=== PATIENT | male | born 1955 | race Caucasian/White ===

== ENCOUNTER 2021-08-10 08:21 | Inpatient (IN) ==
--- NOTE | 2021-08-10 08:42 | Emergency Department Note ---
Extremity Problem HPI General Chief complaint: Extremity Problem,Nontraumatic Stated complaint: lower leg swelling Time Seen by Provider: 08/10/21 08:27 Source: patient and RN notes reviewed Mode of arrival: ambulatory Limitations: no limitations History of Present Illness HPI Narrative: 65-year-old male with past medical history of arthritis, substance abuse and as below presents with severe right knee pain, swelling, redness for about 3 weeks after he fell forward onto her right knee. Patient also feels tired, has shortness of breath, poor appetite with significant loss of weight and loss of taste. Patient has not been immunized for COVID. Patient also has right red eye. Patient has no headache, dizziness, chest pain, abdominal pain, nausea/vomiting/constipation/diarrhea, fever or chills. In the ER he is afebrile, however his blood pressure is 100/68 which is lower than his usual blood pressure MD Complaint: extremity pain and extremity swelling Related Data Home Medications Medication Instructions Recorded Confirmed No Known Home Meds 08/10/21 08/10/21 Allergies Allergy/AdvReac Type Severity Reaction Status Date / Time ciprofloxacin AdvReac Mild Cramping Verified 08/10/21 17:18 of the Muscles Review of Systems ROS ROS Narrative: Narrative: All systems ED: reviewed and negative except as stated. Constitutional: Reports weakness and weight change Eyes: Reports as per HPI and vision change (Right red eye) ENT ED: Reports as per HPI and other (Patient has loss of taste) Cardiovascular: Reports as per HPI (Patient has shortness of breath) Respiratory: Reports shortness of breath Gastrointestinal: Reports as per HPI; Denies abdominal pain, vomiting, diarrhea or constipation Musculoskeletal: Reports as per HPI and joint pain (Right knee pain and selling) [facility] Narrative Patient History Narrative: Narrative: Medical/Surgical/Family History All Active Problems (Updated 08/14/21 @ 08:11 by Russell Elder MD) Sepsis (Acute) Hypokalemia (Acute) Stage 1 acute kidney injury (Acute) Elevated brain natriuretic peptide (BNP) level (Acute) Anemia, normocytic normochromic (Acute) Weight loss (Acute) Hyponatremia (Acute) Septic arthritis of knee, right (Acute) Arthritis (Chronic) Daytime sleepiness (Chronic) Substance use disorder (Chronic) Ankle fracture, left (Chronic) BPH (benign prostatic hyperplasia) (Chronic) Bladder diverticulum (Acute) Bladder polyp (Acute) Incomplete bladder emptying (Acute) Tobacco dependence due to cigarettes, in remission (Chronic) Rib pain on right side (Acute) Dental infection (Acute) Acute pain of right knee (Acute) Pain and swelling of right knee (Acute) Loss of taste (Acute) Anemia (Acute) Medical History Abdominal pain, suprapubic Abrasion of right index finger Abscess Anemia Ankle fracture, left 1993~ Arthritis Bladder diverticulum Bladder polyp BPH (benign prostatic hyperplasia) s/p TURP Daytime sleepiness Edema of left lower extremity Joint pain Medicare annual wellness visit, initial Medicare welcome visit Muscle pain Rib pain on right side Right inguinal hernia Symptomatic right inguinal hernia. Risk, benefits, alternatives to treatment were discussed with him at length. He verbalizes understanding and desires to continue with surgery. Substance use disorder History Tobacco dependence due to cigarettes, in remission Urinary retention Surgical History History of ankle surgery (~1993) Left Ankle Reconstruction History of dental surgery History of hand surgery Right Finger History of right inguinal hernia repair 04/16/2020-laparoscopic S/P vasectomy (~1985) Family History Sister Cancer Social History Smoking Status: Current some day smoker Alcohol Intake Frequency: does not drink Substance Use: former substance user Exam Narrative Narrative: Narrative: General Limitations: no limitations General appearance: Present alert and in no apparent distress Head Head: Present atraumatic and normocephalic Eye Eye: Present other (+ redness right conjunctiva) ENT ENT: Present mucous membranes dry Respiratory Respiratory: Present normal lung sounds bilaterally Cardiovascular Cardiovascular: Present regular rate, normal rhythm and normal heart sounds Adbominal Abdominal: Present soft and normal bowel sounds; Absent organomegaly Extremities Extremities: Present other (+ redness, tenderness, swelling of right knee with fluid waves) Course Course Course Narrative: During the hospital course of blood tests including CBC, chemistry, UA, urine drug screen, COVID test, chest x-ray, right knee x-ray were obtained. Patient was given normal saline 1000 mL IV. Upon follow-up patient says WBC count is 38.1 with left shift, his lactate is 2.5, he has low sodium of 126, BUN/creatinine is high at 26 /1.3, GFR is normal at 56. Patient is negative for COVID. His chest x-ray and x-ray of the right knee is pending. Patient was given Zosyn 3.375 g IV normal saline 2 L IV, Dilaudid 0.5 mg IV, and Zofran 4 mg IV. Plan is to admit patient for further treatment and management Vital Signs Vital signs: Vital Signs Temperature 98.0 F 08/10/21 08:21 Pulse Rate 98 H 08/10/21 08:21 Respiratory Rate 20 08/10/21 08:21 Blood Pressure 100/68 08/10/21 08:21 Pulse Oximetry (%) 98 08/10/21 08:21 Temperature 97.7 F 08/11/21 07:56 Pulse Rate 79 08/11/21 07:56 Respiratory Rate 24 H 08/11/21 07:56 Blood Pressure 149/85 08/11/21 07:56 Pulse Oximetry (%) 98 08/11/21 07:56 MDM MDM Narrative Medical decision making narrative: Narrative: Lab Data Result diagrams: 08/11/21 03:27 08/10/21 18:10 Labs: Lab Results 08/10/21 08/10/21 08/10/21 Range/Units 08:25 08:25 08:25 WBC 38.1 H* (4.5-11.0) K/mcL RBC 4.16 L (4.63-6.08) M/mcL Hgb 11.8 L (13.7-17.5) g/dL Hct 35.2 L (40.1-51.0) % MCV 84.6 (80.0-100.0) fL MCH 28.4 (26.0-34.0) pg MCHC 33.5 (31.0-36.0) g/dL RDW 14.5 (11.5-14.5) % Plt Count 342 (140-440) K/mcL MPV 10.8 H (7.4-10.4) fL Seg Neutrophils % 87 H (38-78) % Band Neutrophils % 4 (0-10) % Lymphocytes % 5 L (15-49) % Eosinophils % (Manual) 4 (0-7) % Platelet Estimate Normal (Normal) RBC Morphology Normal (Normal) ESR (0-20) mm/hr POC VBG pH (7.32-7.42) POC VBG pCO2 at Temp (41-51) POC VBG pO2 (25-40) POC VBG HCO3 (24-28) POC VBG Total CO2 (25-29) POC Venous O2 Sat (40-70) POC VBG Base Excess (-2-2) Sodium 126 L (133-145) mmol/L Potassium 3.4 (3.3-5.1) mmol/L Chloride 89 L (96-108) mmol/L Carbon Dioxide 23 (22-30) mmol/L Anion Gap 14.0 (8.0-16.0) BUN 26 H (8-23) mg/dL Creatinine 1.3 H (0.7-1.2) mg/dL GFR Calculation 56 Glucose 157 H (70-105) mg/dL POC Venous Lactate (0.5-2) Calcium 7.6 L (8.6-10.4) mg/dL Magnesium (1.6-2.5) mg/dL Total Bilirubin 2.4 H (0.1-1.0) mg/dL AST 20 (<40) U/L ALT 20 (<40) U/L Alkaline Phosphatase 530 H (39-117) U/L Troponin T (<0.03) ng/mL NT-Pro-B Natriuret Pep 2163.0 H (<125.0) pg/mL Total Protein 6.0 (5.9-8.4) gm/dL Albumin 2.1 L (3.2-5.2) gm/dL Globulin 3.9 H (2.2-3.7) gm/dL Albumin/Globulin Ratio 0.5 L (1.0-2.3) Procalcitonin (<0.10) ng/mL Random Cortisol ug/dL Hepatitis A IgM Ab (Non-Reactive) Hep Bs Antigen (Negative) Hep B Core IgM Ab (Non-Reactive) Hepatitis C Antibody (Non-Reactive) HIV 1&2 Ag/Ab, 4th Gen (Non-Reactive) 08/10/21 08/10/21 08/10/21 Range/Units 08:25 08:25 08:25 WBC (4.5-11.0) K/mcL RBC (4.63-6.08) M/mcL Hgb (13.7-17.5) g/dL Hct (40.1-51.0) % MCV (80.0-100.0) fL MCH (26.0-34.0) pg MCHC (31.0-36.0) g/dL RDW (11.5-14.5) % Plt Count (140-440) K/mcL MPV (7.4-10.4) fL Seg Neutrophils % (38-78) % Band Neutrophils % (0-10) % Lymphocytes % (15-49) % Eosinophils % (Manual) (0-7) % Platelet Estimate (Normal) RBC Morphology (Normal) ESR > 120 H (0-20) mm/hr POC VBG pH (7.32-7.42) POC VBG pCO2 at Temp (41-51) POC VBG pO2 (25-40) POC VBG HCO3 (24-28) POC VBG Total CO2 (25-29) POC Venous O2 Sat (40-70) POC VBG Base Excess (-2-2) Sodium (133-145) mmol/L Potassium (3.3-5.1) mmol/L Chloride (96-108) mmol/L Carbon Dioxide (22-30) mmol/L Anion Gap (8.0-16.0) BUN (8-23) mg/dL Creatinine (0.7-1.2) mg/dL GFR Calculation Glucose (70-105) mg/dL POC Venous Lactate (0.5-2) Calcium (8.6-10.4) mg/dL Magnesium (1.6-2.5) mg/dL Total Bilirubin (0.1-1.0) mg/dL AST (<40) U/L ALT (<40) U/L Alkaline Phosphatase (39-117) U/L Troponin T (<0.03) ng/mL NT-Pro-B Natriuret Pep (<125.0) pg/mL Total Protein (5.9-8.4) gm/dL Albumin (3.2-5.2) gm/dL Globulin (2.2-3.7) gm/dL Albumin/Globulin Ratio (1.0-2.3) Procalcitonin (<0.10) ng/mL Random Cortisol 17.8 ug/dL Hepatitis A IgM Ab Non-reactive (Non-Reactive) Hep Bs Antigen Negative (Negative) Hep B Core IgM Ab Non-reactive (Non-Reactive) Hepatitis C Antibody Non-reactive (Non-Reactive) HIV 1&2 Ag/Ab, 4th Gen Non-reactive (Non-Reactive) 08/10/21 08/10/21 08/10/21 Range/Units 08:25 09:07 10:58 WBC (4.5-11.0) K/mcL RBC (4.63-6.08) M/mcL Hgb (13.7-17.5) g/dL Hct (40.1-51.0) % MCV (80.0-100.0) fL MCH (26.0-34.0) pg MCHC (31.0-36.0) g/dL RDW (11.5-14.5) % Plt Count (140-440) K/mcL MPV (7.4-10.4) fL Seg Neutrophils % (38-78) % Band Neutrophils % (0-10) % Lymphocytes % (15-49) % Eosinophils % (Manual) (0-7) % Platelet Estimate (Normal) RBC Morphology (Normal) ESR (0-20) mm/hr POC VBG pH 7.43 H (7.32-7.42) POC VBG pCO2 at Temp 41.5 (41-51) POC VBG pO2 36 (25-40) POC VBG HCO3 27.4 (24-28) POC VBG Total CO2 29.0 (25-29) POC Venous O2 Sat 71.0 H (40-70) POC VBG Base Excess 3.0 H (-2-2) Sodium (133-145) mmol/L Potassium (3.3-5.1) mmol/L Chloride (96-108) mmol/L Carbon Dioxide (22-30) mmol/L Anion Gap (8.0-16.0) BUN (8-23) mg/dL Creatinine (0.7-1.2) mg/dL GFR Calculation Glucose (70-105) mg/dL POC Venous Lactate 2.5 H (0.5-2) Calcium (8.6-10.4) mg/dL Magnesium 2.2 (1.6-2.5) mg/dL Total Bilirubin (0.1-1.0) mg/dL AST (<40) U/L ALT (<40) U/L Alkaline Phosphatase (39-117) U/L Troponin T (<0.03) ng/mL NT-Pro-B Natriuret Pep (<125.0) pg/mL Total Protein (5.9-8.4) gm/dL Albumin (3.2-5.2) gm/dL Globulin (2.2-3.7) gm/dL Albumin/Globulin Ratio (1.0-2.3) Procalcitonin 0.56 H (<0.10) ng/mL Random Cortisol ug/dL Hepatitis A IgM Ab (Non-Reactive) Hep Bs Antigen (Negative) Hep B Core IgM Ab (Non-Reactive) Hepatitis C Antibody (Non-Reactive) HIV 1&2 Ag/Ab, 4th Gen (Non-Reactive) 08/10/21 Range/Units 11:12 WBC (4.5-11.0) K/mcL RBC (4.63-6.08) M/mcL Hgb (13.7-17.5) g/dL Hct (40.1-51.0) % MCV (80.0-100.0) fL MCH (26.0-34.0) pg MCHC (31.0-36.0) g/dL RDW (11.5-14.5) % Plt Count (140-440) K/mcL MPV (7.4-10.4) fL Seg Neutrophils % (38-78) % Band Neutrophils % (0-10) % Lymphocytes % (15-49) % Eosinophils % (Manual) (0-7) % Platelet Estimate (Normal) RBC Morphology (Normal) ESR (0-20) mm/hr POC VBG pH (7.32-7.42) POC VBG pCO2 at Temp (41-51) POC VBG pO2 (25-40) POC VBG HCO3 (24-28) POC VBG Total CO2 (25-29) POC Venous O2 Sat (40-70) POC VBG Base Excess (-2-2) Sodium (133-145) mmol/L Potassium (3.3-5.1) mmol/L Chloride (96-108) mmol/L Carbon Dioxide (22-30) mmol/L Anion Gap (8.0-16.0) BUN (8-23) mg/dL Creatinine (0.7-1.2) mg/dL GFR Calculation Glucose (70-105) mg/dL POC Venous Lactate (0.5-2) Calcium (8.6-10.4) mg/dL Magnesium (1.6-2.5) mg/dL Total Bilirubin (0.1-1.0) mg/dL AST (<40) U/L ALT (<40) U/L Alkaline Phosphatase (39-117) U/L Troponin T < 0.01 (<0.03) ng/mL NT-Pro-B Natriuret Pep (<125.0) pg/mL Total Protein (5.9-8.4) gm/dL Albumin (3.2-5.2) gm/dL Globulin (2.2-3.7) gm/dL Albumin/Globulin Ratio (1.0-2.3) Procalcitonin (<0.10) ng/mL Random Cortisol ug/dL Hepatitis A IgM Ab (Non-Reactive) Hep Bs Antigen (Negative) Hep B Core IgM Ab (Non-Reactive) Hepatitis C Antibody (Non-Reactive) HIV 1&2 Ag/Ab, 4th Gen (Non-Reactive) ED POC Tests ED POC Tests: EVANGELINA - SARS Antigen Negative Discharge Plan Patient/Caregiver Discharge Instructions Pt seen by [facility]/PA only: No Clinical Impression: Pain and swelling of right knee, Loss of taste, Sepsis Activity: increase activity as tolerated Patient Disposition: Xfer As Inpt ([facility]) Discharge Date/Time: 08/10/21 11:49 Discharge Comment: Discharged to ICU @ 1141
[2021-08-10] MEDS ORDERED: 0.9 % SODIUM CHLORIDE 1,000 ML IV ONE ×2 (08:57→09:52)
[2021-08-10 09:21] LABS: Hematocrit 35.2 % (40.1-51.0); Hemoglobin 11.8 g/dL (13.7-17.5); Mean Cell Volume 84.6 fL (80.0-100.0); Mean Corpuscular HGB Conc 33.5 g/dL (31.0-36.0); Mean Platelet Volume 10.8 fL (7.4-10.4); Platelet Count 342 K/mcL (140-440); RBC 4.16 M/mcL (4.63-6.08); Red Cell Distribution Width 14.5 % (11.5-14.5); WBC 38.1 K/mcL (4.5-11.0)
[2021-08-10] MEDS ORDERED: HYDROmorphone 0.5 MG/0.5 ML SYRINGE IV ONE (09:27)
[2021-08-10] MEDS ORDERED: PIPERACILLIN SODIUM/TAZOBACTAM 3.375 GM in DEXTROSE 5% IN WATER 50 ML IV ONE (09:29)
[2021-08-10 09:41] LABS: ALT/SGPT 20 U/L (<40); AST/SGOT 20 U/L (<40); Albumin 2.1 gm/dL (3.2-5.2); Albumin/Globulin Ratio 0.5 (1.0-2.3); Alkaline Phosphatase 530 U/L (39-117); Band Neutrophils % 4 % (0-10); Bilirubin,Total 2.4 mg/dL (0.1-1.0); Blood Urea Nitrogen 26 mg/dL (8-23); Calcium 7.6 mg/dL (8.6-10.4); Carbon Dioxide 23 mmol/L (22-30); Chloride 89 mmol/L (96-108); Eosinophils % (Manual) 4 % (0-7); Globulin 3.9 gm/dL (2.2-3.7); Glomerular Filtration Rate 56; Glucose 157 mg/dL (70-105); Lymphocytes % 5 % (15-49); Platelet Estimate NORMAL (Normal); RBC Morphology NORMAL (Normal); Segmented Neutrophils % 87 % (38-78)
[2021-08-10] MEDS ORDERED: ONDANSETRON 4 MG/2 ML VIAL IV ONE (10:29)
[2021-08-10] MEDS ORDERED: 0.9 % SODIUM CHLORIDE 1,000 ML IV SCH (11:00)
--- NOTE | 2021-08-10 11:25 | Internal Med History&Physical ---
HPI History of Present Illness Patient information: Note initiated : 08/10/21 at 11:24 am Service Date, if different from initiated Date: [] Patient: Philip Donato 65 y/o M admitted on for lower leg swelling. Chief Complaint: [right knee swelling and pain] Chief complaint: right knee swelling and pain History of present illness: Mr. Donato is a 65 year old M history of arthritis, substance abuse disorder, presenting with 3-week history of swelling and pain of his right knee. He denies prior similar episode. He stated that he was carrying heavy objects and fell and landed on his knees and his right knee has been progressively getting red, swelling, and pain ever since the accident. He states that when he is at rest there is no pain of his right knee but whenever he is trying to stand or put weight on his right knee he would experience 10 out of 10, sharp, constant pain. He has no also noticed redness and swelling of the right knee. Was more, he is also experiencing increasing bilateral lower extremity swelling. He also has experienced a 40 pound weight loss over the past 3 weeks. He denies shortness of breath. He denies exertional dyspnea. He has orthopnea 2-3 pillows but it has been no change. Vital signs at ED presentation significant for tachypnea with rate of breathing in the mid 20s. Labs significant for leukocytosis with WBC 38.1. BNP 2163. Serum sodium 126. Lactic acid pending. Chest x-ray and right knee x-ray pending's. Admission request made for presumed right knee septic arthritis. Constitutional Constitutional: Present weight loss; Absent chills, excessive sweating, fatigue or fever(s) EENT Eyes: Absent blurry vision, change in vision, loss of vision or other visual disturbances Ears: Absent decreased hearing or tinnitus Nose, mouth and throat: Absent abnormal hearing, dry mouth, headache(s), nasal congestion or sore throat Cardiovascular Cardiovascular: Absent chest pain, chest pain at rest, edema, irregular heart rhythm or palpatations Respiratory Respiratory: Absent cough, dyspnea or wheezing Gastrointestinal Gastrointestinal: Absent abdominal pain, constipation, diarrhea, nausea or vomiting Musculoskeletal Musculoskeletal: Present as per HPI, arthralgias, joint swelling and limited range of motion; Absent back pain, deformity, muscle cramps, muscle weakness or numbness Integumentary Integumentary: Absent lesions, rash or wounds Neurological Neurological: Absent focal weakness, headache(s) or numbness Psychiatric Psychiatric: Absent anxiety, depression or hallucinations PFSH PFSH All Active Problems (Updated 08/10/21 @ 11:38 by Shaun Navarrete MD) Stage 1 acute kidney injury (Acute) Elevated brain natriuretic peptide (BNP) level (Acute) Anemia, normocytic normochromic (Acute) Weight loss (Acute) Hyponatremia (Acute) Septic arthritis of knee, right (Acute) Arthritis (Chronic) Daytime sleepiness (Chronic) Substance use disorder (Chronic) Ankle fracture, left (Chronic) BPH (benign prostatic hyperplasia) (Chronic) Bladder diverticulum (Acute) Bladder polyp (Acute) Incomplete bladder emptying (Acute) Tobacco dependence due to cigarettes, in remission (Chronic) Rib pain on right side (Acute) Dental infection (Acute) Acute pain of right knee (Acute) Pain and swelling of right knee (Acute) Loss of taste (Acute) Anemia (Acute) Medical History Abdominal pain, suprapubic Abrasion of right index finger Abscess Anemia Ankle fracture, left 1993~ Arthritis Bladder diverticulum Bladder polyp BPH (benign prostatic hyperplasia) s/p TURP Daytime sleepiness Edema of left lower extremity Joint pain Medicare annual wellness visit, initial Medicare welcome visit Muscle pain Rib pain on right side Right inguinal hernia Symptomatic right inguinal hernia. Risk, benefits, alternatives to treatment were discussed with him at length. He verbalizes understanding and desires to continue with surgery. Substance use disorder History Tobacco dependence due to cigarettes, in remission Urinary retention Surgical History History of ankle surgery (~1993) Left Ankle Reconstruction History of dental surgery History of hand surgery Right Finger History of right inguinal hernia repair 04/16/2020-laparoscopic S/P vasectomy (~1985) Family History Sister Cancer Social History (Updated 12/27/20 @ 14:47 by Ekaterina Gonzalez RN) marital status: smoking status: Former smoker alcohol intake frequency: does not drink substance use type: former substance user MEDS/ALLERGIES Home Medications and Allergies Home Medications Medication Instructions Recorded Confirmed Type No Known Home Meds 08/10/21 08/10/21 History Allergies Allergy/AdvReac Type Severity Reaction Status Date / Time ciprofloxacin AdvReac Mild Cramping Verified 08/10/21 08:24 of the Muscles EXAM Constitutional Vitals: Temp Pulse Resp BP Pulse Ox 36.7 C 69 25 H 128/76 97 08/10/21 08:21 08/10/21 10:46 08/10/21 11:01 08/10/21 11:01 08/10/21 10:46 General appearance: cooperative, disheveled and no acute distress Head Head exam: Present atraumatic and normocephalic Eye Eye exam: Present EOMI and PERRL ENT ENT exam: Present mucous membranes moist, normal exam and normal external ear exam Neck Neck exam: Present normal inspection; Absent lymphadenopathy, tenderness or thyromegaly Respiratory Respiratory exam: Absent accessory muscle use, respiratory distress or wheezes Cardiovascular Cardiovascular exam: Present normal rate and rhythm; Absent JVD GI/Abdominal GI/Abdominal exam: Present normal bowel sounds and soft; Absent organomegaly or tenderness Rectal Rectal exam: Present deferred Extremities Exam Extremities exam: Present joint swelling, normal capillary refill, pedal edema and tenderness; Absent full ROM or normal inspection Additional comments: active and passive ROMs of the right knee limited by pain. Erythema, swelling, warmth, and tenderness to palpation of right knee. Neurological Exam Neurological exam: Present alert, CN II-XII intact and oriented X3; Absent motor sensory deficit Psychiatric Psychiatric exam: Present normal affect and normal mood; Absent anxious or depressed Skin Skin exam: Present dry and intact DATA Data Completed and Pending Labs: Labs from last 24 hours 08/10/21 08/10/21 08/10/21 11:12 10:58 09:07 WBC RBC Hgb Hct MCV MCH MCHC RDW Plt Count MPV Seg Neutrophils % Band Neutrophils % Lymphocytes % Eosinophils % (Manual) Platelet Estimate RBC Morphology POC VBG pH 7.43 H POC VBG pCO2 at Temp 41.5 POC VBG pO2 36 POC VBG HCO3 27.4 POC VBG Total CO2 29.0 POC Venous O2 Sat 71.0 H POC VBG Base Excess 3.0 H Sodium Potassium Chloride Carbon Dioxide Anion Gap BUN Creatinine GFR Calculation Glucose POC Venous Lactate 2.5 H Calcium Magnesium 2.2 Total Bilirubin AST ALT Alkaline Phosphatase Troponin T Pending NT-Pro-B Natriuret Pep Total Protein Albumin Globulin Albumin/Globulin Ratio 08/10/21 08/10/2108/10/22 08:25 08:25 08:25 WBC 38.1 H* RBC 4.16 L Hgb 11.8 L Hct 35.2 L MCV 84.6 MCH 28.4 MCHC 33.5 RDW 14.5 Plt Count 342 MPV 10.8 H Seg Neutrophils % 87 H Band Neutrophils % 4 Lymphocytes % 5 L Eosinophils % (Manual) 4 Platelet Estimate Normal RBC Morphology Normal POC VBG pH POC VBG pCO2 at Temp POC VBG pO2 POC VBG HCO3 POC VBG Total CO2 POC Venous O2 Sat POC VBG Base Excess Sodium 126 L Potassium 3.4 Chloride 89 L Carbon Dioxide 23 Anion Gap 14.0 BUN 26 H Creatinine 1.3 H GFR Calculation 56 Glucose 157 H POC Venous Lactate Calcium 7.6 L Magnesium Total Bilirubin 2.4 H AST 20 ALT 20 Alkaline Phosphatase 530 H Troponin T NT-Pro-B Natriuret Pep 2163.0 H Total Protein 6.0 Albumin 2.1 L Globulin 3.9 H Albumin/Globulin Ratio 0.5 L A/P Assessment and plan (1) Pain and swelling of right knee: Status: Acute (2) Septic arthritis of knee, right: Status: Acute (3) Hyponatremia: Status: Acute (4) Weight loss: Status: Acute (5) Anemia, normocytic normochromic: Status: Acute (6) Elevated brain natriuretic peptide (BNP) level: Status: Acute (7) Stage 1 acute kidney injury: Status: Acute Narrative A/P Narrative: Assessment and Plans: 1. Right knee swelling and pain: DDx: Septic arthritis, gout, rheumatoid arthritis Inpatient PCU Pending knee tapped with synovial fluid collections for for an analysis including gram stain and culture, cell count and differentials, most of scopic crystal analysis, glucose, proteins, albumin Status post fluid boluses given in the ED, to be followed by NS at 75 cc/h Serial lactic acid Procalcitonin Blood culture CBC with auto differential in the morning to trend WBC MRSA screening Vancomycin Zosyn Tylenol as needed fever or mild pain Oxycodone as needed moderate pain Morphine IV as needed severe pain Physical therapy Urine drug screen 2. Recent weight loss: Chest x-ray two-view to look for signs of TB Quantiferon Gold HIV screening Hepatitis panel Dietitian consult 3. hyponatremia with unknown chronicity: TSH Cortisol a.m. and random Status post fluid boluses given in the ED, to be followed by NS at 75 cc/h BMP q8hr, goals of corrections 8-10 points in the first 24 hours to avoid overcorrection's with associated [facility]PITAL[facility] AIDE consequences such as central pontine myelinolysis 4. Anemia, normocytic normochromic: CBC in the morning to trend H&H 5. Elevated BNP with associated bilateral leg swellinD echocardiogram to look for sign of congestive heart failure Leg elevations at rest when sleeping 6. Stage 1 acute kidney injury: Avoid nephrotoxic agent Status post fluid boluses given in the ED, to be followed by NS at 75 cc/h Serial BMP to trend kidney functions GI ppx: not currently indicated DVT ppx: Heparin Code status: Full Prognosis: guarded Disposition: inpatient PCU; PT Time Spent With Patient Time: Total time spent is greater than 50% in coordination of care (as documented) at patient's floor/unit and/or counseling patient: Total time spent with greater than 50% in coordination of care (as documented) at patient's floor/unit and/or counseling patient:: 50 - 70 minutes
[2021-08-10] MEDS ORDERED: SENNOSIDES 1 TABLET PO PRN (11:53)
[2021-08-10] MEDS ORDERED: LACTULOSE 20 GM/30 ML ORAL.SOL PO PRN (11:53)
[2021-08-10] MEDS ORDERED: VANCOMYCIN PER PHARMACY IV SCH (11:53)
[2021-08-10] MEDS ORDERED: morphine 4 MG/ML VIAL IV PRN (11:53)
[2021-08-10] MEDS ORDERED: IPRATROPIUM/ALBUTEROL 3 ML AMPUL.NEB NEB PRN (11:53)
[2021-08-10] MEDS ORDERED: VANCOMYCIN 1,500 MG in 0.9 % SODIUM CHLORIDE 500 ML IV ONE (12:00)
[2021-08-10] MEDS ORDERED: METOPROLOL TARTRATE 5 MG/5 ML VIAL IV PRN (12:21)
[2021-08-10] MEDS: 0.9 % SODIUM CHLORIDE 1,000 ML IV SCH (12:27)
[2021-08-10 12:34] LABS: HIV1/2 AG/AB 4TH Generation Non-Reactive (Non-Reactive)
[2021-08-10 12:41] LABS: Hepatitis B Surface Antigen Negative (Negative); Hepatitis C Virus Antibody Non-Reactive (Non-Reactive)
[2021-08-10 12:48] LABS: Estimated Average Glucose(eAG) 114 mg/dL; Hemoglobin A1C 5.6 % Hgb (4.0-6.0)
[2021-08-10 13:03] LABS: Thyroid Stimulating Hormone 2.78 uIU/mL (0.27-5.01)
[2021-08-10 13:07] LABS: Amphetamine Screen,Urine None detected; Barbiturate Screen,Urine None detected; Benzodiazepines Screen,Urine None detected; Cannabinoid Screen,Urine Suspect Positive; Cocaine Screen,Urine None detected; Opiate Screen,Urine None detected; Oxycodone, Urine Screen None detected; Phencyclidine Screen,Urine None detected
[2021-08-10] MEDS: oxyCODONE HCL 5 MG TABLET PO PRN ×2 (14:10→20:49)
[2021-08-10] MEDS: PIPERACILLIN SODIUM/TAZOBACTAM 3.375 GM in DEXTROSE 5% IN WATER 50 ML IV SCH ×3 (14:11→23:45)
--- NOTE | 2021-08-10 14:30 | XRay Report ---
HISTORY: Short of breath, lower leg swelling FINDINGS: Prominent increased interstitial lung markings are present bilaterally with the greatest involvement above the left diaphragm. No prior study is available for comparison. Lung volumes are normal. There is no lobar consolidation, mass, adenopathy or pleural effusion. Heart size is upper limits of normal in size. The pulmonary vessels are partially obscured by the generalized lung disease. IMPRESSION: Generalized interstitial lung disease. This is nonspecific and could be due to inflammation, fibrosis, pulmonary vascular congestion or a combination of the above. Interpreted and Authenticated by: Rodney Gómez 08/10/21
--- NOTE | 2021-08-10 14:31 | XRay Report ---
HISTORY: Fell with right knee pain FINDINGS: There is a large amount soft tissue swelling anterior to the patella. No fracture or dislocation are present. There is no gas or foreign body in the soft tissues. No joint effusion is detected. Comparison with the prior exam from 07/30/21 shows little change. IMPRESSION: Soft tissue injury and no fracture Interpreted and Authenticated by: Rodney Gómez 08/10/21
[2021-08-10 15:58] LABS: Appearance,Urine CLEAR (Clear); Bilirubin,Urine Negative (Negative); Color,Urine Yellow; Culture Indicated,Urine No; Glucose,Urine (UA) Negative (Negative); Ketones,Urine Negative (Negative); Leukocyte Esterase,Urine Negative /uL (Negative); Nitrate,Urine Negative (Negative); Protein,Urine Negative (Negative); Specific Gravity,Urine 1.011 (1.000-1.035); Urine Blood Negative (Negative)
[2021-08-10] MEDS: 0.9 % SODIUM CHLORIDE 10 ML SYRINGE IV SCH ×2 (16:06→20:44)
[2021-08-10] MEDS: ACETAMINOPHEN 325 MG TABLET PO PRN ×2 (17:36→23:52)
[2021-08-10] MEDS: IBUPROFEN 800 MG TABLET PO PRN (19:20)
[2021-08-10 19:33] LABS: Blood Urea Nitrogen 30 mg/dL (8-23); Calcium 7.4 mg/dL (8.6-10.4); Carbon Dioxide 26 mmol/L (22-30); Chloride 97 mmol/L (96-108); Glomerular Filtration Rate 69; Glucose 135 mg/dL (70-105)
[2021-08-10] MEDS ORDERED: POTASSIUM CHLORIDE 40 MEQ in DEXTROSE 5% IN WATER 500 ML IV ONE (19:38)
[2021-08-10] MEDS ORDERED: POTASSIUM CHLORIDE 20 MEQ/10 ML VIAL IV ONE (20:12)
[2021-08-10] MEDS ORDERED: HEPARIN 5,000 UNIT/ML VIAL SQ SCH (21:00)
[2021-08-10] MEDS ORDERED: DOCUSATE SODIUM 100 MG CAPSULE PO SCH (21:00)
[2021-08-10] MEDS ORDERED: LORazepam 1 MG TABLET PO PRN (22:21)
[2021-08-10] MEDS ORDERED: VANCOMYCIN 1,000 MG in 0.9 % SODIUM CHLORIDE 250 ML IV SCH (23:00)
[2021-08-10] MEDS ORDERED: LORazepam 1 MG TABLET ONE (23:53)
[2021-08-11] MEDS: ONDANSETRON 4 MG/2 ML VIAL IV PRN ×2 (01:29→05:16)
[2021-08-11] MEDS: 0.9 % SODIUM CHLORIDE 1,000 ML IV SCH (01:31)
[2021-08-11] MEDS: oxyCODONE HCL 5 MG TABLET PO PRN (03:10)
[2021-08-11 04:34] LABS: Basophils # (Auto) 0.09 K/mcL (0.00-0.30); Basophils % (Auto) 0.3 % (0.0-2.0); Eosinophils # (Auto) 0.95 K/mcL (0.00-0.70); Lymphocytes # (Auto) 1.48 K/mcL (1.50-4.80); Lymphocytes % (Auto) 4.7 % (15.5-49.0); Mean Cell Volume 84.4 fL (80.0-100.0); Mean Corpuscular HGB Conc 34.4 g/dL (31.0-36.0); Mean Platelet Volume 10.5 fL (7.4-10.4); Monocytes # (Auto) 0.98 K/mcL (0.10-0.90); Monocytes % (Auto) 3.1 % (1.0-12.0); Neutrophils % (Auto) 83.8 % (38.0-78.0); Phosphorous 2.6 mg/dL (2.5-4.5); Platelet Count 327 K/mcL (140-440); RBC 3.79 M/mcL (4.63-6.08); Red Cell Distribution Width 14.5 % (11.5-14.5); WBC 31.3 K/mcL (4.5-11.0)
[2021-08-11] MEDS: PIPERACILLIN SODIUM/TAZOBACTAM 3.375 GM in DEXTROSE 5% IN WATER 50 ML IV SCH (05:16)
[2021-08-11] MEDS: 0.9 % SODIUM CHLORIDE 10 ML SYRINGE IV SCH (05:22)
[2021-08-11] MEDS: IBUPROFEN 800 MG TABLET PO PRN (06:45)
--- NOTE | 2021-08-11 09:16 | Discharge Summary ---
Discharge Provider Provider IMPORTANT FOLLOW-UP INFORMATION FOR PCP: Patient information: Note initiated : 08/11/21 at 9:14 am Service Date, if different from initiated Date: [] Patient: Philip Donato 65 y/o M admitted on 08/10/21 for lower leg swelling. Chief Complaint: [] Date of admission: 08/10/21 11:49 Discharge date: 08/11/21 Primary care physician: Amari Boo MD Attending physician on admission: Shaun Navarrete Consults: 08/10/21 Consult to Physician [CONS] Stat Comment: Consulting Provider: Shaun Navarrete Reason For Exam: Physician to Consult Attending physician on discharge: Shaun Navarrete COURSE Hospital Course Hospital course: History of present illness: Mr. Donato is a 65 year old M history of arthritis, substance abuse disorder, presenting with 3-week history of swelling and pain of his right knee. He denies prior similar episode. He stated that he was carrying heavy objects and fell and landed on his knees and his right knee has been progressively getting red, swelling, and pain ever since the accident. He states that when he is at rest there is no pain of his right knee but whenever he is trying to stand or put weight on his right knee he would experience 10 out of 10, sharp, constant pain. He has no also noticed redness and swelling of the right knee. Was more, he is also experiencing increasing bilateral lower extremity swelling. He also has experienced a 40 pound weight loss over the past 3 weeks. He denies shortness of breath. He denies exertional dyspnea. He has orthopnea 2-3 pillows but it has been no change. Vital signs at ED presentation significant for tachypnea with rate of breathing in the mid 20s. Labs significant for leukocytosis with WBC 38.1. BNP 2163. Serum sodium 126. Lactic acid pending. Chest x-ray and right knee x-ray pending's. Admission request made for presumed right knee septic arthritis. 08/11: Patient left AMA Discharge diagnosis: right knee septic joint Time Spent with Patient Time attestation: Total time spent providing and/or coordinating discharge services: Time spent: Less than 30 minutes EXAM Constitutional Vitals: Temp Pulse Resp BP Pulse Ox 36.5 C 79 24 H 149/85 98 08/11/21 07:56 08/11/21 07:56 08/11/21 07:56 08/11/21 07:56 08/11/21 07:56 General appearance: disheveled and no acute distress; no cooperative Head Head exam: Present atraumatic and normocephalic Eye Eye exam: Present EOMI and PERRL ENT ENT exam: Present mucous membranes moist, normal exam and normal external ear ex am Neck Neck exam: Present normal inspection; Absent lymphadenopathy, tenderness or thyromegaly Respiratory Respiratory exam: Absent accessory muscle use, respiratory distress or wheezes Cardiovascular Cardiovascular exam: Present normal rate and rhythm; Absent JVD GI/Abdominal GI/Abdominal exam: Present normal bowel sounds and soft; Absent organomegaly or tenderness Rectal Rectal exam: Present deferred Extremities Exam Extremities exam: Present joint swelling, normal capillary refill and tenderness; Absent full ROM or normal inspection Neurological Exam Neurological exam: Present alert, CN II-XII intact and oriented X3; Absent motor sensory deficit Psychiatric Psychiatric exam: Present normal affect and normal mood; Absent anxious or depressed Skin Skin exam: Present dry and intact Discharge Data Data Completed and Pending Labs on day of discharge: Labs from last 24 hours 08/11/21 08/11/21 08/11/21 03:27 03:27 03:27 WBC 31.3 H* RBC 3.79 L Hgb 11.0 L Hct 32.0 L MCV 84.4 MCH 29.0 MCHC 34.4 RDW 14.5 Plt Count 327 MPV 10.5 H Immature Gran % (Auto) 5.1 H Neut % (Auto) 83.8 H Lymph % (Auto) 4.7 L Clark % (Auto) 3.1 Eos % (Auto) 3.0 Baso % (Auto) 0.3 Lymph # (Auto) 1.48 L Clark # (Auto) 0.98 H Eos # (Auto) 0.95 H Baso # (Auto) 0.09 Seg Neutrophils % Band Neutrophils % Lymphocytes % Eosinophils % (Manual) Immature Gran # 1.61 H Absolute Neutrophils 27.82 H Differential Comment Platelet Estimate RBC Morphology ESR VBG Lactic Acid Sodium Potassium Chloride Carbon Dioxide Anion Gap BUN Creatinine GFR Calculation Glucose Hemoglobin A1c Estim Average Glucose Calcium Phosphorus 2.6 Magnesium 2.2 Total Bilirubin AST ALT Alkaline Phosphatase Troponin T C-Reactive Protein NT-Pro-B Natriuret Pep Total Protein Albumin Globulin Albumin/Globulin Ratio Procalcitonin TSH Random Cortisol Cortisol AM Sample 19.1 Urine Color Urine Appearance Urine pH Ur Specific Dell Urine Protein Urine Glucose (UA) Urine Ketones Urine Occult Blood Urine Nitrate Urine Bilirubin Urine Urobilinogen Ur Leukocyte Esterase Ur Culture Indicated? Urine Opiates Screen Ur Opiates Confirm Ur Oxycodone Screen Urine Methadone Screen Ur Methadone Confirm Ur Barbiturates Screen Ur Barbiturate Confirm Ur Phencyclidine Scrn Urine PCP Confirm Ur Amphetamines Screen U Amphetamines Confirm U Benzodiazepines Scrn Ur Benzodiazepine, Qnt Urine Cocaine Screen Urine Cocaine Confirm U Cannabinoids Confirm U Marijuana (THC) Screen Hepatitis A IgM Ab Hep Bs Antigen Hep B Core IgM Ab Hepatitis C Antibody HIV 1&2 Ag/Ab, 4th Gen TB (QFT) Gold In Tube TB Test Mitogen - Nil TB Test Ag - Nil 1 TB Test Ag - Nil 2 TB Test CD4 Ag - Nil 08/10/21 08/10/21 08/10/21 18:10 12:26 12:25 WBC RBC Hgb Hct MCV MCH MCHC RDW Plt Count MPV Immature Gran % (Auto) Neut % (Auto) Lymph % (Auto) Clark % (Auto) Eos % (Auto) Baso % (Auto) Lymph # (Auto) Clark # (Auto) Eos # (Auto) Baso # (Auto) Seg Neutrophils % Band Neutrophils % Lymphocytes % Eosinophils % (Manual) Immature Gran # Absolute Neutrophils Differential Comment Platelet Estimate RBC Morphology ESR VBG Lactic Acid 1.5 Sodium 133 TNP Potassium 2.9 L* TNP Chloride 97 TNP Carbon Dioxide 26 TNP Anion Gap 10.0 TNP BUN 30 H TNP Creatinine 1.1 TNP GFR Calculation 69 TNP Glucose 135 H TNP Hemoglobin A1c 5.6 Estim Average Glucose 114 Calcium 7.4 L TNP Phosphorus Magnesium Total Bilirubin TNP AST TNP ALT TNP Alkaline Phosphatase TNP Troponin T C-Reactive Protein 8.50 H NT-Pro-B Natriuret Pep Total Protein TNP Albumin TNP Globulin TNP Albumin/Globulin Ratio TNP Procalcitonin TSH 2.78 Random Cortisol Cortisol AM Sample Urine Color Urine Appearance Urine pH Ur Specific Dell Urine Protein Urine Glucose (UA) Urine Ketones Urine Occult Blood Urine Nitrate Urine Bilirubin Urine Urobilinogen Ur Leukocyte Esterase Ur Culture Indicated? Urine Opiates Screen Ur Opiates Confirm Ur Oxycodone Screen Urine Methadone Screen Ur Methadone Confirm Ur Barbiturates Screen Ur Barbiturate Confirm Ur Phencyclidine Scrn Urine PCP Confirm Ur Amphetamines Screen U Amphetamines Confirm U Benzodiazepines Scrn Ur Benzodiazepine, Qnt Urine Cocaine Screen Urine Cocaine Confirm U Cannabinoids Confirm U Marijuana (THC) Screen Hepatitis A IgM Ab Hep Bs Antigen Hep B Core IgM Ab Hepatitis C Antibody HIV 1&2 Ag/Ab, 4th Gen TB (QFT) Gold In Tube Pending TB Test Mitogen - Nil Pending TB Test Ag - Nil 1 Pending TB Test Ag - Nil 2 Pending TB Test CD4 Ag - Nil Pending 08/10/21 08/10/21 08/10/21 12:17 12:17 11:12 WBC RBC Hgb Hct MCV MCH MCHC RDW Plt Count MPV Immature Gran % (Auto) Neut % (Auto) Lymph % (Auto) Clark % (Auto) Eos % (Auto) Baso % (Auto) Lymph # (Auto) Clark # (Auto) Eos # (Auto) Baso # (Auto) Seg Neutrophils % Band Neutrophils % Lymphocytes % Eosinophils % (Manual) Immature Gran # Absolute Neutrophils Differential Comment Platelet Estimate RBC Morphology ESR VBG Lactic Acid Sodium Potassium Chloride Carbon Dioxide Anion Gap BUN Creatinine GFR Calculation Glucose Hemoglobin A1c Estim Average Glucose Calcium Phosphorus Magnesium Total Bilirubin AST ALT Alkaline Phosphatase Troponin T < 0.01 C-Reactive Protein NT-Pro-B Natriuret Pep Total Protein Albumin Globulin Albumin/Globulin Ratio Procalcitonin TSH Random Cortisol Cortisol AM Sample Urine Color Yellow Urine Appearance Clear Urine pH 5.0 Ur Specific Dell 1.011 Urine Protein Negative Urine Glucose (UA) Negative Urine Ketones Negative Urine Occult Blood Negative Urine Nitrate Negative Urine Bilirubin Negative Urine Urobilinogen 4.0 A Ur Leukocyte Esterase Negative Ur Culture Indicated? No Urine Opiates Screen None detected Ur Opiates Confirm TNP Ur Oxycodone Screen None detected Urine Methadone Screen None detected Ur Methadone Confirm TNP Ur Barbiturates Screen None detected Ur Barbiturate Confirm TNP Ur Phencyclidine Scrn None detected Urine PCP Confirm TNP Ur Amphetamines Screen None detected U Amphetamines Confirm TNP U Benzodiazepines Scrn None detected Ur Benzodiazepine, Qnt TNP Urine Cocaine Screen None detected Urine Cocaine Confirm TNP U Cannabinoids Confirm Pending U Marijuana (THC) Screen Suspect positive A Hepatitis A IgM Ab Hep Bs Antigen Hep B Core IgM Ab Hepatitis C Antibody HIV 1&2 Ag/Ab, 4th Gen TB (QFT) Gold In Tube TB Test Mitogen - Nil TB Test Ag - Nil 1 TB Test Ag - Nil 2 TB Test CD4 Ag - Nil 08/10/21 08/10/21 08/10/21 10:58 08:25 08:25 WBC RBC Hgb Hct MCV MCH MCHC RDW Plt Count MPV Immature Gran % (Auto) Neut % (Auto) Lymph % (Auto) Clark % (Auto) Eos % (Auto) Baso % (Auto) Lymph # (Auto) Clark # (Auto) Eos # (Auto) Baso # (Auto) Seg Neutrophils % Band Neutrophils % Lymphocytes % Eosinophils % (Manual) Immature Gran # Absolute Neutrophils Differential Comment Platelet Estimate RBC Morphology ESR VBG Lactic Acid Sodium Potassium Chloride Carbon Dioxide Anion Gap BUN Creatinine GFR Calculation Glucose Hemoglobin A1c Estim Average Glucose Calcium Phosphorus Magnesium 2.2 Total Bilirubin AST ALT Alkaline Phosphatase Troponin T C-Reactive Protein NT-Pro-B Natriuret Pep Total Protein Albumin Globulin Albumin/Globulin Ratio Procalcitonin 0.56 H TSH Random Cortisol Cortisol AM Sample Urine Color Urine Appearance Urine pH Ur Specific Dell Urine Protein Urine Glucose (UA) Urine Ketones Urine Occult Blood Urine Nitrate Urine Bilirubin Urine Urobilinogen Ur Leukocyte Esterase Ur Culture Indicated? Urine Opiates Screen Ur Opiates Confirm Ur Oxycodone Screen Urine Methadone Screen Ur Methadone Confirm Ur Barbiturates Screen Ur Barbiturate Confirm Ur Phencyclidine Scrn Urine PCP Confirm Ur Amphetamines Screen U Amphetamines Confirm U Benzodiazepines Scrn Ur Benzodiazepine, Qnt Urine Cocaine Screen Urine Cocaine Confirm U Cannabinoids Confirm U Marijuana (THC) Screen Hepatitis A IgM Ab Non-reactive Hep Bs Antigen Negative Hep B Core IgM Ab Non-reactive Hepatitis C Antibody Non-reactive HIV 1&2 Ag/Ab, 4th Gen Non-reactive TB (QFT) Gold In Tube TB Test Mitogen - Nil TB Test Ag - Nil 1 TB Test Ag - Nil 2 TB Test CD4 Ag - Nil 08/10/21 08/10/21 08/10/21 08:25 08:25 08:25 WBC RBC Hgb Hct MCV MCH MCHC RDW Plt Count MPV Immature Gran % (Auto) Neut % (Auto) Lymph % (Auto) Clark % (Auto) Eos % (Auto) Baso % (Auto) Lymph # (Auto) Clark # (Auto) Eos # (Auto) Baso # (Auto) Seg Neutrophils % Band Neutrophils % Lymphocytes % Eosinophils % (Manual) Immature Gran # Absolute Neutrophils Differential Comment Platelet Estimate RBC Morphology ESR > 120 H VBG Lactic Acid Sodium Potassium Chloride Carbon Dioxide Anion Gap BUN Creatinine GFR Calculation Glucose Hemoglobin A1c Estim Average Glucose Calcium Phosphorus Magnesium Total Bilirubin AST ALT Alkaline Phosphatase Troponin T C-Reactive Protein NT-Pro-B Natriuret Pep 2163.0 H Total Protein Albumin Globulin Albumin/Globulin Ratio Procalcitonin TSH Random Cortisol 17.8 Cortisol AM Sample Urine Color Urine Appearance Urine pH Ur Specific Dell Urine Protein Urine Glucose (UA) Urine Ketones Urine Occult Blood Urine Nitrate Urine Bilirubin Urine Urobilinogen Ur Leukocyte Esterase Ur Culture Indicated? Urine Opiates Screen Ur Opiates Confirm Ur Oxycodone Screen Urine Methadone Screen Ur Methadone Confirm Ur Barbiturates Screen Ur Barbiturate Confirm Ur Phencyclidine Scrn Urine PCP Confirm Ur Amphetamines Screen U Amphetamines Confirm U Benzodiazepines Scrn Ur Benzodiazepine, Qnt Urine Cocaine Screen Urine Cocaine Confirm U Cannabinoids Confirm U Marijuana (THC) Screen Hepatitis A IgM Ab Hep Bs Antigen Hep B Core IgM Ab Hepatitis C Antibody HIV 1&2 Ag/Ab, 4th Gen TB (QFT) Gold In Tube TB Test Mitogen - Nil TB Test Ag - Nil 1 TB Test Ag - Nil 2 TB Test CD4 Ag - Nil 08/10/21 08/10/21 08:25 08:25 WBC 38.1 H* RBC 4.16 L Hgb 11.8 L Hct 35.2 L MCV 84.6 MCH 28.4 MCHC 33.5 RDW 14.5 Plt Count 342 MPV 10.8 H Immature Gran % (Auto) Neut % (Auto) Lymph % (Auto) Clark % (Auto) Eos % (Auto) Baso % (Auto) Lymph # (Auto) Clark # (Auto) Eos # (Auto) Baso # (Auto) Seg Neutrophils % 87 H Band Neutrophils % 4 Lymphocytes % 5 L Eosinophils % (Manual) 4 Immature Gran # Absolute Neutrophils Differential Comment Platelet Estimate Normal RBC Morphology Normal ESR VBG Lactic Acid Sodium 126 L Potassium 3.4 Chloride 89 L Carbon Dioxide 23 Anion Gap 14.0 BUN 26 H Creatinine 1.3 H GFR Calculation 56 Glucose 157 H Hemoglobin A1c Estim Average Glucose Calcium 7.6 L Phosphorus Magnesium Total Bilirubin 2.4 H AST 20 ALT 20 Alkaline Phosphatase 530 H Troponin T C-Reactive Protein NT-Pro-B Natriuret Pep Total Protein 6.0 Albumin 2.1 L Globulin 3.9 H Albumin/Globulin Ratio 0.5 L Procalcitonin TSH Random Cortisol Cortisol AM Sample Urine Color Urine Appearance Urine pH Ur Specific Dell Urine Protein Urine Glucose (UA) Urine Ketones Urine Occult Blood Urine Nitrate Urine Bilirubin Urine Urobilinogen Ur Leukocyte Esterase Ur Culture Indicated? Urine Opiates Screen Ur Opiates Confirm Ur Oxycodone Screen Urine Methadone Screen Ur Methadone Confirm Ur Barbiturates Screen Ur Barbiturate Confirm Ur Phencyclidine Scrn Urine PCP Confirm Ur Amphetamines Screen U Amphetamines Confirm U Benzodiazepines Scrn Ur Benzodiazepine, Qnt Urine Cocaine Screen Urine Cocaine Confirm U Cannabinoids Confirm U Marijuana (THC) Screen Hepatitis A IgM Ab Hep Bs Antigen Hep B Core IgM Ab Hepatitis C Antibody HIV 1&2 Ag/Ab, 4th Gen TB (QFT) Gold In Tube TB Test Mitogen - Nil TB Test Ag - Nil 1 TB Test Ag - Nil 2 TB Test CD4 Ag - Nil Discharge Plan Patient/Caregiver Discharge Instructions Activity: increase activity as tolerated Diet: Regular Diet Prescriptions: No Action No Known Home Meds 0RF Follow Up Plan Follow up with: Amari Boo MD [Primary Care Provider] - Patient Disposition: Left Against Medical Advice Rehab Potential: Undetermined I certify that the patient requires SNF services: No Overall status at discharge: patient is progressing back to baseline QUALITY VTE Deep Vein Thrombosis/Pulmonary Embolism Present on Admission: No
[2021-08-14 13:26] LABS: NIL 0.02 IU/mL; Quant TB Gold + 4T Incubated NEGATIVE (NEGATIVE); TB2-NIL <0.00 IU/mL
--- NOTE | 2021-08-16 07:30 | Emergency Department Note ---
Extremity Problem HPI General Chief complaint: Extremity Problem,Nontraumatic Stated complaint: lower leg swelling Time Seen by Provider: 08/10/21 08:27 Source: patient and RN notes reviewed Mode of arrival: ambulatory Limitations: no limitations History of Present Illness HPI Narrative: Narrative: Related Data Home Medications Medication Instructions Recorded Confirmed No Known Home Meds 08/10/21 08/10/21 Allergies Allergy/AdvReac Type Severity Reaction Status Date / Time ciprofloxacin AdvReac Mild Cramping Verified 08/10/21 17:18 of the Muscles Review of Systems ROS ROS Narrative: Narrative: Constitutional: Reports weakness and weight change Eyes: Reports as per HPI and vision change (Right red eye) ENT ED: Reports as per HPI and other (Patient has loss of taste) Cardiovascular: Reports as per HPI (Patient has shortness of breath) Respiratory: Reports shortness of breath Gastrointestinal: Reports as per HPI; Denies abdominal pain, vomiting, diarrhea or constipation Musculoskeletal: Reports as per HPI and joint pain (Right knee pain and selling) PFSH Narrative Patient History Narrative: Narrative: Medical/Surgical/Family History All Active Problems (Updated 08/14/21 @ 08:11 by Russell Elder MD) Sepsis (Acute) Hypokalemia (Acute) Stage 1 acute kidney injury (Acute) Elevated brain natriuretic peptide (BNP) level (Acute) Anemia, normocytic normochromic (Acute) Weight loss (Acute) Hyponatremia (Acute) Septic arthritis of knee, right (Acute) Arthritis (Chronic) Daytime sleepiness (Chronic) Substance use disorder (Chronic) Ankle fracture, left (Chronic) BPH (benign prostatic hyperplasia) (Chronic) Bladder diverticulum (Acute) Bladder polyp (Acute) Incomplete bladder emptying (Acute) Tobacco dependence due to cigarettes, in remission (Chronic) Rib pain on right side (Acute) Dental infection (Acute) Acute pain of right knee (Acute) Pain and swelling of right knee (Acute) Loss of taste (Acute) Anemia (Acute) Medical History Abdominal pain, suprapubic Abrasion of right index finger Abscess Anemia Ankle fracture, left 1994~ Arthritis Bladder diverticulum Bladder polyp BPH (benign prostatic hyperplasia) s/p TURP Daytime sleepiness Edema of left lower extremity Joint pain Medicare annual wellness visit, initial Medicare welcome visit Muscle pain Rib pain on right side Right inguinal hernia Symptomatic right inguinal hernia. Risk, benefits, alternatives to treatment were discussed with him at length. He verbalizes understanding and desires to continue with surgery. Substance use disorder History Tobacco dependence due to cigarettes, in remission Urinary retention Surgical History History of ankle surgery (~1993) Left Ankle Reconstruction History of dental surgery History of hand surgery Right Finger History of right inguinal hernia repair 04/16/2020-laparoscopic S/P vasectomy (~1985) Family History Sister Cancer Social History Smoking Status: Former smoker Alcohol Intake Frequency: does not drink Substance Use: former substance user Exam Narrative Narrative: Narrative: General Limitations: no limitations Course Vital Signs Vital signs: Vital Signs Temperature 98.0 F 08/10/21 08:21 Pulse Rate 98 H 08/10/21 08:21 Respiratory Rate 20 08/10/21 08:21 Blood Pressure 100/68 08/10/21 08:21 Pulse Oximetry (%) 98 08/10/21 08:21 Oxygen Delivery Method 08/10/21 08:21 Temperature 97.7 F 08/11/21 07:56 Pulse Rate 79 08/11/21 07:56 Respiratory Rate 24 H 08/11/21 07:56 Blood Pressure 149/85 08/11/21 07:56 Pulse Oximetry (%) 98 08/11/21 07:56 Oxygen Delivery Method 08/10/21 20:00 Oxygen Flow Rate (L/min) 0 08/11/21 07:56 MDM MDM Narrative Medical decision making narrative: Narrative: Lab Data Result diagrams: 08/11/21 03:27 08/10/21 18:10 Labs: Lab Results 08/10/21 08/10/21 08/10/21 Range/Units 08:25 08:25 08:25 WBC 38.1 H* (4.5-11.0) K/mcL RBC 4.16 L (4.63-6.08) M/mcL Hgb 11.8 L (13.7-17.5) g/dL Hct 35.2 L (40.1-51.0) % MCV 84.6 (80.0-100.0) fL MCH 28.4 (26.0-34.0) pg MCHC 33.5 (31.0-36.0) g/dL RDW 14.5 (11.5-14.5) % Plt Count 342 (140-440) K/mcL MPV 10.8 H (7.4-10.4) fL Seg Neutrophils % 87 H (38-78) % Band Neutrophils % 4 (0-10) % Lymphocytes % 5 L (15-49) % Eosinophils % (Manual) 4 (0-7) % Platelet Estimate Normal (Normal) RBC Morphology Normal (Normal) ESR (0-20) mm/hr POC VBG pH (7.32-7.42) POC VBG pCO2 at Temp (41-51) POC VBG pO2 (25-40) POC VBG HCO3 (24-28) POC VBG Total CO2 (25-29) POC Venous O2 Sat (40-70) POC VBG Base Excess (-2-2) Sodium 126 L (133-145) mmol/L Potassium 3.4 (3.3-5.1) mmol/L Chloride 89 L (96-108) mmol/L Carbon Dioxide 23 (22-30) mmol/L Anion Gap 14.0 (8.0-16.0) BUN 26 H (8-23) mg/dL Creatinine 1.3 H (0.7-1.2) mg/dL GFR Calculation 56 Glucose 157 H (70-105) mg/dL POC Venous Lactate (0.5-2) Calcium 7.6 L (8.6-10.4) mg/dL Magnesium (1.6-2.5) mg/dL Total Bilirubin 2.4 H (0.1-1.0) mg/dL AST 20 (<40) U/L ALT 20 (<40) U/L Alkaline Phosphatase 530 H (39-117) U/L Troponin T (<0.03) ng/mL NT-Pro-B Natriuret Pep 2163.0 H (<125.0) pg/mL Total Protein 6.0 (5.9-8.4) gm/dL Albumin 2.1 L (3.2-5.2) gm/dL Globulin 3.9 H (2.2-3.7) gm/dL Albumin/Globulin Ratio 0.5 L (1.0-2.3) Procalcitonin (<0.10) ng/mL Random Cortisol ug/dL Hepatitis A IgM Ab (Non-Reactive) Hep Bs Antigen (Negative) Hep B Core IgM Ab (Non-Reactive) Hepatitis C Antibody (Non-Reactive) HIV 1&2 Ag/Ab, 4th Gen (Non-Reactive) 08/10/21 08/10/21 08/10/21 Range/Units 08:25 08:25 08:25 WBC (4.5-11.0) K/mcL RBC (4.63-6.08) M/mcL Hgb (13.7-17.5) g/dL Hct (40.1-51.0) % MCV (80.0-100.0) fL MCH (26.0-34.0) pg MCHC (31.0-36.0) g/dL RDW (11.5-14.5) % Plt Count (140-440) K/mcL MPV (7.4-10.4) fL Seg Neutrophils % (38-78) % Band Neutrophils % (0-10) % Lymphocytes % (15-49) % Eosinophils % (Manual) (0-7) % Platelet Estimate (Normal) RBC Morphology (Normal) ESR > 120 H (0-20) mm/hr POC VBG pH (7.32-7.42) POC VBG pCO2 at Temp (41-51) POC VBG pO2 (25-40) POC VBG HCO3 (24-28) POC VBG Total CO2 (25-29) POC Venous O2 Sat (40-70) POC VBG Base Excess (-2-2) Sodium (133-145) mmol/L Potassium (3.3-5.1) mmol/L Chloride (96-108) mmol/L Carbon Dioxide (22-30) mmol/L Anion Gap (8.0-16.0) BUN (8-23) mg/dL Creatinine (0.7-1.2) mg/dL GFR Calculation Glucose (70-105) mg/dL POC Venous Lactate (0.5-2) Calcium (8.6-10.4) mg/dL Magnesium (1.6-2.5) mg/dL Total Bilirubin (0.1-1.0) mg/dL AST (<40) U/L ALT (<40) U/L Alkaline Phosphatase (39-117) U/L Troponin T (<0.03) ng/mL NT-Pro-B Natriuret Pep (<125.0) pg/mL Total Protein (5.9-8.4) gm/dL Albumin (3.2-5.2) gm/dL Globulin (2.2-3.7) gm/dL Albumin/Globulin Ratio (1.0-2.3) Procalcitonin (<0.10) ng/mL Random Cortisol 17.8 ug/dL Hepatitis A IgM Ab Non-reactive (Non-Reactive) Hep Bs Antigen Negative (Negative) Hep B Core IgM Ab Non-reactive (Non-Reactive) Hepatitis C Antibody Non-reactive (Non-Reactive) HIV 1&2 Ag/Ab, 4th Gen Non-reactive (Non-Reactive) 08/10/21 08/10/21 08/10/21 Range/Units 08:25 09:07 10:58 WBC (4.5-11.0) K/mcL RBC (4.63-6.08) M/mcL Hgb (13.7-17.5) g/dL Hct (40.1-51.0) % MCV (80.0-100.0) fL MCH (26.0-34.0) pg MCHC (31.0-36.0) g/dL RDW (11.5-14.5) % Plt Count (140-440) K/mcL MPV (7.4-10.4) fL Seg Neutrophils % (38-78) % Band Neutrophils % (0-10) % Lymphocytes % (15-49) % Eosinophils % (Manual) (0-7) % Platelet Estimate (Normal) RBC Morphology (Normal) ESR (0-20) mm/hr POC VBG pH 7.43 H (7.32-7.42) POC VBG pCO2 at Temp 41.5 (41-51) POC VBG pO2 36 (25-40) POC VBG HCO3 27.4 (24-28) POC VBG Total CO2 29.0 (25-29) POC Venous O2 Sat 71.0 H (40-70) POC VBG Base Excess 3.0 H (-2-2) Sodium (133-145) mmol/L Potassium (3.3-5.1) mmol/L Chloride (96-108) mmol/L Carbon Dioxide (22-30) mmol/L Anion Gap (8.0-16.0) BUN (8-23) mg/dL Creatinine (0.7-1.2) mg/dL GFR Calculation Glucose (70-105) mg/dL POC Venous Lactate 2.5 H (0.5-2) Calcium (8.6-10.4) mg/dL Magnesium 2.2 (1.6-2.5) mg/dL Total Bilirubin (0.1-1.0) mg/dL AST (<40) U/L ALT (<40) U/L Alkaline Phosphatase (39-117) U/L Troponin T (<0.03) ng/mL NT-Pro-B Natriuret Pep (<125.0) pg/mL Total Protein (5.9-8.4) gm/dL Albumin (3.2-5.2) gm/dL Globulin (2.2-3.7) gm/dL Albumin/Globulin Ratio (1.0-2.3) Procalcitonin 0.56 H (<0.10) ng/mL Random Cortisol ug/dL Hepatitis A IgM Ab (Non-Reactive) Hep Bs Antigen (Negative) Hep B Core IgM Ab (Non-Reactive) Hepatitis C Antibody (Non-Reactive) HIV 1&2 Ag/Ab, 4th Gen (Non-Reactive) 08/10/21 Range/Units 11:12 WBC (4.5-11.0) K/mcL RBC (4.63-6.08) M/mcL Hgb (13.7-17.5) g/dL Hct (40.1-51.0) % MCV (80.0-100.0) fL MCH (26.0-34.0) pg MCHC (31.0-36.0) g/dL RDW (11.5-14.5) % Plt Count (140-440) K/mcL MPV (7.4-10.4) fL Seg Neutrophils % (38-78) % Band Neutrophils % (0-10) % Lymphocytes % (15-49) % Eosinophils % (Manual) (0-7) % Platelet Estimate (Normal) RBC Morphology (Normal) ESR (0-20) mm/hr POC VBG pH (7.32-7.42) POC VBG pCO2 at Temp (41-51) POC VBG pO2 (25-40) POC VBG HCO3 (24-28) POC VBG Total CO2 (25-29) POC Venous O2 Sat (40-70) POC VBG Base Excess (-2-2) Sodium (133-145) mmol/L Potassium (3.3-5.1) mmol/L Chloride (96-108) mmol/L Carbon Dioxide (22-30) mmol/L Anion Gap (8.0-16.0) BUN (8-23) mg/dL Creatinine (0.7-1.2) mg/dL GFR Calculation Glucose (70-105) mg/dL POC Venous Lactate (0.5-2) Calcium (8.6-10.4) mg/dL Magnesium (1.6-2.5) mg/dL Total Bilirubin (0.1-1.0) mg/dL AST (<40) U/L ALT (<40) U/L Alkaline Phosphatase (39-117) U/L Troponin T < 0.01 (<0.03) ng/mL NT-Pro-B Natriuret Pep (<125.0) pg/mL Total Protein (5.9-8.4) gm/dL Albumin (3.2-5.2) gm/dL Globulin (2.2-3.7) gm/dL Albumin/Globulin Ratio (1.0-2.3) Procalcitonin (<0.10) ng/mL Random Cortisol ug/dL Hepatitis A IgM Ab (Non-Reactive) Hep Bs Antigen (Negative) Hep B Core IgM Ab (Non-Reactive) Hepatitis C Antibody (Non-Reactive) HIV 1&2 Ag/Ab, 4th Gen (Non-Reactive) ED POC Tests ED POC Tests: EVANGELINA - SARS Antigen Negative Discharge Plan Patient/Caregiver Discharge Instructions Pt seen by B[employer] STORE ASSOCIATE/PA only: No Clinical Impression: Pain and swelling of right knee, Loss of taste, Sepsis Activity: increase activity as tolerated Patient Disposition: Xfer As Inpt ([facility]) Discharge Date/Time: 08/10/21 11:49 Discharge Comment: Discharged to ICU @ 1140
--- NOTE | 2021-08-17 19:10 | EKG ---
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
[2021-08-18 05:24] LABS: Cannabinoid Confirmation Positive
--- NOTE | 2021-08-18 10:37 | EKG ---
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 Measurements Intervals [place] Rate: 121 P: [place]: QRS: -12 QRSD: 104 T: 83 QT: 343 QTc: 487 Interpretive Statements Atrial fibrillation Borderline repolarization abnormality Borderline prolonged QT interval Electronically Signed On 08-18-2021 10:37:09 PDT by Sylvain Gómez M.D. /[email or web address]/[id number]/[id number]
== END 2021-08-11 09:36 | disposition left against medical advice (07) | DRG 549 ==
LOC: ED 08:21 → ICU 11:49
PROVIDERS: ADMIT Internal Medicine; ATTEND Internal Medicine